=== PATIENT | female | born 1965 | race Hispanic/Latino ===

== ENCOUNTER 2025-02-17 13:46 | Emergency (ER) | payer BC ==
[~2025-02-17] VITALS: Ht 149.9 cm; Wt 81.6 kg
[~2025-02-17 13:46] MED LIST: CALCET TABLET1 EACH PO; MAGNESIUM; MULTI-VITAMIN1 EACH PO; VITAMIN C1000 MG PO
[2025-02-17 13:50] VITALS: PULSE 77; RESP 17; TEMP 98.9; O2SAT 99
== END 2025-02-17 14:24 | disposition home or self-care (01) ==
LOC: ER 14:09
DX: R94.31 Abnormal electrocardiogram [ECG] [EKG] (principal); E78.5 Hyperlipidemia, unspecified; K21.9 Gastro-esophageal reflux disease without esophagitis
CPT/HCPCS: 93005; 99282